=== PATIENT | male | born 1970 | race Caucasian/White ===

== ENCOUNTER 2023-10-27 04:40 | Emergency (ER) | payer BC, SELFPAY ==
[2023-10-27 04:40] VITALS: PULSE 82; RESP 11; TEMP 36.6; O2SAT 99; BMI 25.3
--- NOTE | 2023-10-27 05:04 | CT_ITS ---
INDICATION: head injury EXAMINATION: CT BRAIN - CT Head or Brain W/O Contrast Injection TECHNIQUE: Multiple axial images were obtained of the head with sagittal and coronal reconstructed images. Individualized dose optimization techniques were used for this CT. IV contrast dosage and agent: None. COMPARISON: None. FINDINGS: BRAIN PARENCHYMA: No evidence of an acute infarct or intracranial hemorrhage. Probable arachnoid cyst at the right vertex. CSF SPACES: The ventricles, sulci and subarachnoid cisterns are appropriate for age. CALVARIUM, SKULL BASE, PARANASAL SINUSES AND MASTOID AIR CELLS: No fracture. Mastoid air cells are clear. Visualized paranasal sinuses are unremarkable. ORBITS: The globes, extraocular muscles, optic nerves and retrobulbar fat are unremarkable. CT/Brain/Head without Contrast IMPRESSION: No fracture or acute intracranial abnormality. Electronically Signed: Adi Marcelino DO at 6:48 EDT ,
--- NOTE | 2023-10-27 05:04 | CT_ITS ---
INDICATION: injury EXAMINATION: CT Spine Cervical W/O Contrast Injection TECHNIQUE: Helically acquired images were obtained of the cervical spine with sagittal and coronal reconstructed images. Individualized dose optimization techniques were used for this CT. IV contrast dosage and agent: None. COMPARISON: None. FINDINGS: VERTEBRAE: No fracture or subluxation. The craniocervical junction is unremarkable. Mild degenerative changes. NECK SOFT TISSUES: The prevertebral soft tissues are unremarkable. No pathologically enlarged lymph nodes. THYROID: Unremarkable. LUNG APICES: Unremarkable. CT/Spine Cervical without Contras IMPRESSION: No fracture or subluxation. Electronically Signed: Adi Marcelino DO at 6:52 EDT ,
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
--- NOTE | 2023-10-27 05:35 | RAD_ITS ---
INDICATION: pain EXAMINATION/TECHNIQUE: X-RAY - RIGHT XR Ankle Min 3 Views COMPARISON: None. FINDINGS: SOFT TISSUES: Lateral ankle soft tissue swelling. BONES/JOINTS: Nondisplaced fracture of the distal fibula at and proximal to the ankle mortise. No significant degenerative changes. No erosive changes. RAD/Ankle min 3 Views IMPRESSION: Nondisplaced distal fibular fracture. Electronically Signed: Adi Marcelino DO at 7:07 EDT ,
--- NOTE | 2023-10-27 05:35 | RAD_ITS ---
INDICATION: pain EXAMINATION/TECHNIQUE: X-RAY - XR Ribs Unilateral W/ PA Chest Min 3 Views COMPARISON: None. FINDINGS: SOFT TISSUES: Unremarkable. BONES: No evidence of an acute left rib fracture. Chronic left rib fractures are present. VISUALIZED LUNGS: Clear. No pneumothorax. VISUALIZED MEDIASTINUM: Unremarkable. RAD/Ribs Uni Min 3V w/PA Chest IMPRESSION: No evidence of an acute left rib fracture. Electronically Signed: Adi Marcelino DO at 7:09 EDT ,
[2023-10-27 07:59] VITALS: BP 108/78; PULSE 80; RESP 16; TEMP 36.5; O2SAT 97
== END 2023-10-27 08:04 | disposition home or self-care (01) ==
PROVIDERS: Emergency Provider Emergency Medicine; Visit Provider Emergency Medicine
DX: S82.831A Other fracture of upper and lower end of right fibula, initial encounter for closed fracture (principal); G40.909 Epilepsy, unspecified, not intractable, without status epilepticus; S09.90XA Unspecified injury of head, initial encounter; F17.210 Nicotine dependence, cigarettes, uncomplicated; S20.212A Contusion of left front wall of thorax, initial encounter; S00.431A Contusion of right ear, initial encounter; S00.33XA Contusion of nose, initial encounter; Y04.8XXA Assault by other bodily force, initial encounter
CPT/HCPCS: 70450; 71101; 72125; 73610; 99284